=== PATIENT | male | born 1975 | race Two or more races ===

== ENCOUNTER 2024-09-11 12:26 | Emergency (ER) | payer OTHER ==
[~2024-09-11] VITALS: Ht 165.1 cm; Wt 68.1 kg
[2024-09-11 12:32] VITALS: BP 154/105; PULSE 76; RESP 18; O2SAT 99
[2024-09-11] MEDS ORDERED: DIPH25CA83 PO (14:15)
[2024-09-11] MEDS ORDERED: PRED10TA23 PO (14:15)
[2024-09-11] MEDS: methylPREDNISolone sod succ 125mg/2ml vial IM ONE (14:24)
[2024-09-11 14:28] VITALS: TEMP 97.8
== END 2024-09-11 14:30 | disposition home or self-care (01) ==
LOC: ER 12:27
DX: L23.7 Allergic contact dermatitis due to plants, except food (principal)
CPT/HCPCS: 96372; 99283; J2919